=== PATIENT | female | born 1945 | race Caucasian/White ===

== ENCOUNTER 2020-10-20 16:03 | Inpatient (IN) ==
[2020-10-20] MEDS ORDERED: Melatonin 3 MG TABLET PO PRN (20:04)
[2020-10-20] MEDS ORDERED: Ondansetron 4 MG/2 ML VIAL IVP PRN (20:04)
[2020-10-20] MEDS ORDERED: Naloxone 0.4 MG/ML INJ IVP PRN (20:04)
[2020-10-21] MEDS ORDERED: D5% in Water 1,000 ML IVC PRN (00:15)
[2020-10-21] MEDS ORDERED: *HR* Dextrose 50 % in Water (Vial) 50 ML VIAL IVP PRN (00:15)
[2020-10-21] MEDS ORDERED: Dextrose Gel 15 GM/37.5 ML TUBE PO PRN ×2 (00:15)
[2020-10-21] MEDS: DilTIAZem 50 MG in 0.9 % Sodium Chloride 40 ML IVC SCH ×4 (00:16→21:05)
[2020-10-21] MEDS ORDERED: Levalbuterol Neb 0.63 MG/3 ML IH PRN (00:16)
[2020-10-21] MEDS ORDERED: Perflutren Lipid Microsphere 1.3 ML in 0.9 % Sodium Chloride 8.7 ML IVP PRN (00:55)
[2020-10-21 03:23] LABS: Basophils # 0.1 K/mcL (0.0-0.2); Basophils % 0.5 %; Eosinophils # 0.3 K/mcL (0.0-0.6); Eosinophils % 2.7 %; Hematocrit 35.6 % (35.3-44.9); Hemoglobin 10.8 g/dL (11.5-15.4); Immature Granulocytes % 0.5 % (0-4); Lymphocytes # 1.9 K/mcL (0.6-4.6); Lymphocytes % 16.7 %; Mean Corpuscular HGB Conc 30.3 g/dL (31.6-35.5); Mean Corpuscular Volume 95.4 fL (83.0-100.0); Mean Platelet Volume 9.6 fL (9.4-12.4); Monocytes # 0.9 K/mcL (0.0-1.3); Monocytes % 7.5 %; Neutrophils # 8.3 K/mcL (1.6-8.9); Platelet Count 450 K/mcL (140-400); Red Blood Count 3.73 M/mcL (3.82-4.97); Red Cell Distribution Width 13.2 % (11.5-14.5); Segmented Neutrophils % 72.1 %; White Blood Count 11.5 K/mcL (4.3-11.1)
[2020-10-21 03:39] LABS: Alanine Aminotransferase 12 Units/L (7-52); Albumin 3.8 g/dL (3.5-5.7); Albumin/Globulin Ratio 1.7 (1.1-2.2); Alkaline Phosphatase 49 Units/L (34-104); Aspartate Amino Transferase 14 Units/L (13-39); BUN/Creatinine Ratio 28 (6-26); Bilirubin,Total 0.4 mg/dL (0.3-1.0); Blood Urea Nitrogen 13 mg/dL (8-23); Calcium 9.4 mg/dL (8.6-10.3); Carbon Dioxide 39 mEq/L (23-29); Chloride 96 mEq/L (98-107); Globulin 2.3 g/dL (2.4-3.5); Glucose 126 mg/dL (70-105); Magnesium 1.6 mg/dL (1.6-2.6); Osmolality,Calculated 294 (280-300); Phosphorous 3.5 mg/dL (2.7-4.5); Potassium 4.2 mEq/L (3.5-5.1); Sodium 141 mEq/L (136-145); Total Protein 6.1 g/dL (6.4-8.9); eGFR For African Americans > 60 (> 60); eGFR For Non-African Americans > 60 (> 60)
[2020-10-21] MEDS: Insulin LISPRO 300 UNITS/3 ML VIAL SUBQ SCH ×4 (05:33→21:03)
[2020-10-21] MEDS: Acetaminophen 325 MG TABLET PO PRN (08:57)
[2020-10-21] MEDS: Aspirin 81 MG TAB.CHEW PO SCH (08:58)
[2020-10-21] MEDS ORDERED: Azithromycin 250 MG TABLET PO ONE (14:46)
[2020-10-21] MEDS ORDERED: *HR* Heparin 5,000 UNIT/ML VIAL IVP PRN ×2 (14:49)
[2020-10-21] MEDS ORDERED: *HR* Heparin 5,000 UNIT/ML VIAL IVP ONE (14:49)
[2020-10-21 16:15] LABS: Hematocrit 35.8 % (35.3-44.9); Hemoglobin 10.4 g/dL (11.5-15.4); Mean Corpuscular HGB Conc 29.1 g/dL (31.6-35.5); Mean Corpuscular Hemoglobin 27.6 pg (28.0-33.3); Mean Platelet Volume 9.6 fL (9.4-12.4); Platelet Count 435 K/mcL (140-400); Red Blood Count 3.77 M/mcL (3.82-4.97); Red Cell Distribution Width 13.2 % (11.5-14.5); White Blood Count 10.6 K/mcL (4.3-11.1)
[2020-10-21] MEDS: cefTRIAXone 1,000 MG in 0.9 % Sodium Chloride Mini Bag 100 ML IVPB SCH (16:15)
[2020-10-21 16:27] LABS: Heparin anti-factor XA UFH 0.15 IU/mL (0.30-0.70)
[2020-10-21 16:28] LABS: INR 1.2; Prothrombin Time 14.3 Seconds (9.4-12.1)
[2020-10-21 17:47] LABS: Bilirubin,Urine Negative (Negative); Blood,Urine Negative (Negative); Clarity,Urine Clear (Clear); Color,Urine Light-Yellow (Yellow); Glucose,Urine (UA) >=1000 mg/dL (Normal); Ketones,Urine 40 mg/dL (Negative); Leukocyte Esterase,Urine Negative (Negative); Mucus,Urine Few per lpf (None-Few); Nitrite,Urine Negative (Negative); Protein,Urine Negative (Neg-Trace); Specific Gravity,Urine 1.029 (1.010-1.025); Squamous Epithelial Cell,Urine Few per hpf (None-Few); Urobilinogen,Urine Normal (Normal); WBC,Urine 0-3 per hpf (0-3)
[2020-10-21] MEDS: Magnesium Oxide 400 MG TABLET PO SCH (18:39)
[2020-10-21] MEDS: Metoprolol XL (24 HR) Succ 50 MG TAB.ER.24H PO SCH (18:40)
[2020-10-21] MEDS: Heparin 25,000UNIT/250ML 1/2NS 25,000 UNIT/250 ML IV.SOLN IVC SCH (18:40)
[2020-10-22] MEDS: DilTIAZem 50 MG in 0.9 % Sodium Chloride 40 ML IVC SCH ×2 (00:16→04:09)
[2020-10-22 00:36] LABS: Basophils # 0.1 K/mcL (0.0-0.2); Basophils % 0.6 %; Eosinophils # 0.3 K/mcL (0.0-0.6); Eosinophils % 2.7 %; Hematocrit 34.3 % (35.3-44.9); Immature Granulocytes % 0.6 % (0-4); Lymphocytes # 1.8 K/mcL (0.6-4.6); Lymphocytes % 16.9 %; Mean Corpuscular HGB Conc 29.2 g/dL (31.6-35.5); Mean Corpuscular Hemoglobin 27.5 pg (28.0-33.3); Mean Corpuscular Volume 94.5 fL (83.0-100.0); Mean Platelet Volume 9.5 fL (9.4-12.4); Monocytes # 0.9 K/mcL (0.0-1.3); Monocytes % 8.1 %; Neutrophils # 7.7 K/mcL (1.6-8.9); Platelet Count 415 K/mcL (140-400); Red Blood Count 3.63 M/mcL (3.82-4.97); Red Cell Distribution Width 13.3 % (11.5-14.5); Segmented Neutrophils % 71.1 %; White Blood Count 10.9 K/mcL (4.3-11.1)
[2020-10-22 00:55] LABS: BUN/Creatinine Ratio 25 (6-26); Blood Urea Nitrogen 13 mg/dL (8-23); Calcium 9.4 mg/dL (8.6-10.3); Carbon Dioxide 38 mEq/L (23-29); Chloride 93 mEq/L (98-107); Glucose 165 mg/dL (70-105); Magnesium 1.7 mg/dL (1.6-2.6); Osmolality,Calculated 288 (280-300); Potassium 3.8 mEq/L (3.5-5.1); Sodium 137 mEq/L (136-145); eGFR For African Americans > 60 (> 60); eGFR For Non-African Americans > 60 (> 60)
[2020-10-22] MEDS ORDERED: DilTIAZem 50 MG in 0.9 % Sodium Chloride 40 ML IVC SCH (07:58)
[2020-10-22] MEDS: Aspirin 81 MG TAB.CHEW PO SCH (08:41)
[2020-10-22] MEDS: DilTIAZem CD (24hr) 300 MG CAP.ER.24H PO SCH (08:41)
[2020-10-22] MEDS: Magnesium Oxide 400 MG TABLET PO SCH (08:41)
[2020-10-22] MEDS: Insulin LISPRO 300 UNITS/3 ML VIAL SUBQ SCH ×4 (08:41→20:44)
[2020-10-22] MEDS: Metoprolol XL (24 HR) Succ 50 MG TAB.ER.24H PO SCH (08:41)
[2020-10-22] MEDS: Heparin 25,000UNIT/250ML 1/2NS 25,000 UNIT/250 ML IV.SOLN IVC SCH (12:37)
[2020-10-22] MEDS: Azithromycin 250 MG TABLET PO SCH (16:27)
[2020-10-22] MEDS: cefTRIAXone 1,000 MG in 0.9 % Sodium Chloride Mini Bag 100 ML IVPB SCH (16:27)
[2020-10-23 02:20] LABS: Basophils # 0.1 K/mcL (0.0-0.2); Eosinophils # 0.3 K/mcL (0.0-0.6); Eosinophils % 3.1 %; Hematocrit 36.7 % (35.3-44.9); Hemoglobin 10.5 g/dL (11.5-15.4); Immature Granulocytes % 0.9 % (0-4); Lymphocytes # 1.5 K/mcL (0.6-4.6); Lymphocytes % 18.3 %; Mean Corpuscular HGB Conc 28.6 g/dL (31.6-35.5); Mean Corpuscular Hemoglobin 28.7 pg (28.0-33.3); Mean Corpuscular Volume 100.3 fL (83.0-100.0); Mean Platelet Volume 9.8 fL (9.4-12.4); Platelet Count 332 K/mcL (140-400); Red Blood Count 3.66 M/mcL (3.82-4.97); Red Cell Distribution Width 13.6 % (11.5-14.5); Segmented Neutrophils % 64.7 %; White Blood Count 8.1 K/mcL (4.3-11.1)
[2020-10-23 02:24] LABS: Neutrophils # 5.2 K/mcL (1.6-8.9)
[2020-10-23 02:51] LABS: BUN/Creatinine Ratio 22 (6-26); Blood Urea Nitrogen 11 mg/dL (8-23); Calcium 8.4 mg/dL (8.6-10.3); Carbon Dioxide 28 mEq/L (23-29); Chloride 98 mEq/L (98-107); Glucose 113 mg/dL (70-105); Magnesium 1.9 mg/dL (1.6-2.6); Osmolality,Calculated 286 (280-300); Potassium 4.3 mEq/L (3.5-5.1); Sodium 138 mEq/L (136-145); eGFR For African Americans > 60 (> 60); eGFR For Non-African Americans > 60 (> 60)
[2020-10-23] MEDS: Heparin 25,000UNIT/250ML 1/2NS 25,000 UNIT/250 ML IV.SOLN IVC SCH (05:05)
[2020-10-23] MEDS: Acetaminophen 325 MG TABLET PO PRN (05:56)
[2020-10-23] MEDS: Insulin LISPRO 300 UNITS/3 ML VIAL SUBQ SCH ×4 (08:00→21:38)
[2020-10-23] MEDS: Aspirin 81 MG TAB.CHEW PO SCH (08:01)
[2020-10-23] MEDS: DilTIAZem CD (24hr) 300 MG CAP.ER.24H PO SCH (08:01)
[2020-10-23] MEDS: Magnesium Oxide 400 MG TABLET PO SCH (08:01)
[2020-10-23] MEDS: Metoprolol XL (24 HR) Succ 50 MG TAB.ER.24H PO SCH ×2 (10:19→20:40)
[2020-10-23] MEDS: cefTRIAXone 1,000 MG in 0.9 % Sodium Chloride Mini Bag 100 ML IVPB SCH (14:46)
[2020-10-23] MEDS: Azithromycin 250 MG TABLET PO SCH (14:46)
[2020-10-23] MEDS ORDERED: *HR* Heparin 5,000 UNIT/ML VIAL IVP PRN ×2 (17:18→17:19)
[2020-10-23] MEDS ORDERED: Heparin 25,000UNIT/250ML 1/2NS 25,000 UNIT/250 ML IV.SOLN IVC SCH (17:19)
[2020-10-23] MEDS: Apixaban 5 MG TABLET PO SCH (20:40)
[2020-10-24 01:16] LABS: Basophils # 0.1 K/mcL (0.0-0.2); Basophils % 0.9 %; Eosinophils # 0.3 K/mcL (0.0-0.6); Eosinophils % 3.3 %; Hemoglobin 9.8 g/dL (11.5-15.4); Lymphocytes # 1.4 K/mcL (0.6-4.6); Lymphocytes % 17.7 %; Mean Corpuscular HGB Conc 29.7 g/dL (31.6-35.5); Mean Corpuscular Hemoglobin 28.4 pg (28.0-33.3); Mean Corpuscular Volume 95.7 fL (83.0-100.0); Mean Platelet Volume 9.7 fL (9.4-12.4); Monocytes % 12.5 %; Neutrophils # 5.2 K/mcL (1.6-8.9); Platelet Count 421 K/mcL (140-400); Red Blood Count 3.45 M/mcL (3.82-4.97); Red Cell Distribution Width 13.8 % (11.5-14.5); Segmented Neutrophils % 64.6 %; White Blood Count 8.1 K/mcL (4.3-11.1)
[2020-10-24 01:39] LABS: BUN/Creatinine Ratio 24 (6-26); Blood Urea Nitrogen 11 mg/dL (8-23); Carbon Dioxide 36 mEq/L (23-29); Chloride 97 mEq/L (98-107); Glucose 139 mg/dL (70-105); Magnesium 1.8 mg/dL (1.6-2.6); Osmolality,Calculated 292 (280-300); Sodium 140 mEq/L (136-145); eGFR For African Americans > 60 (> 60); eGFR For Non-African Americans > 60 (> 60)
[2020-10-24] MEDS: Acetaminophen 325 MG TABLET PO PRN (05:43)
[2020-10-24] MEDS: Apixaban 5 MG TABLET PO SCH ×2 (08:25→19:44)
[2020-10-24] MEDS: DilTIAZem CD (24hr) 180 MG CAP.ER.24H PO SCH (08:26)
[2020-10-24] MEDS: Insulin LISPRO 300 UNITS/3 ML VIAL SUBQ SCH ×4 (08:26→19:46)
[2020-10-24] MEDS: Aspirin 81 MG TAB.CHEW PO SCH (08:26)
[2020-10-24] MEDS: Metoprolol XL (24 HR) Succ 50 MG TAB.ER.24H PO SCH ×2 (08:26→19:44)
[2020-10-24] MEDS: Magnesium Oxide 400 MG TABLET PO SCH (08:26)
[2020-10-24] MEDS ORDERED: Furosemide 20 MG/2 ML VIAL IVP ONE (12:08)
[2020-10-24] MEDS ORDERED: MethylPREDNISolone 40 MG/ML VIAL IVP ONE (12:08)
[2020-10-24 14:31] LABS: Adenovirus Not Detected (Not Detect); Bordetella Pertussis Not Detected (Not Detect); Chlamydophila pneumoniae Not Detected (Not Detect); Coronavirus 229E Not Detected (Not Detect); Coronavirus HKU1 Not Detected (Not Detect); Coronavirus NL63 Not Detected (Not Detect); Coronavirus OC43 Not Detected (Not Detect); Human Metapneumovirus Not Detected (Not Detect); Human Rhinovirus/Enterovirus Not Detected (Not Detect); Influenza A Subtype 2009 H1 Not Detected (Not Detect); Influenza B Not Detected (Not Detect); Mycoplasma pneumoniae Not Detected (Not Detect); Parainfluenza Virus 1 Not Detected (Not Detect); Parainfluenza Virus 2 Not Detected (Not Detect); Parainfluenza Virus 3 Not Detected (Not Detect); Parainfluenza Virus 4 Not Detected (Not Detect); Respiratory Syncytial Virus Not Detected (Not Detect); SARS-CoV-2 Not Detected (Not Detect)
[2020-10-24] MEDS: Azithromycin 250 MG TABLET PO SCH (15:32)
[2020-10-24] MEDS: cefTRIAXone 1,000 MG in 0.9 % Sodium Chloride Mini Bag 100 ML IVPB SCH (15:33)
[2020-10-24] MEDS: Levalbuterol Neb 0.63 MG/3 ML IH SCH ×2 (15:57→21:37)
[2020-10-25] MEDS: Levalbuterol Neb 0.63 MG/3 ML IH SCH ×4 (03:32→22:29)
[2020-10-25 06:57] LABS: Basophils % 0.3 %; Hematocrit 32.6 % (35.3-44.9); Hemoglobin 9.6 g/dL (11.5-15.4); Immature Granulocytes % 1.1 % (0-4); Lymphocytes # 0.9 K/mcL (0.6-4.6); Lymphocytes % 9.9 %; Mean Corpuscular HGB Conc 29.4 g/dL (31.6-35.5); Mean Platelet Volume 10.4 fL (9.4-12.4); Monocytes # 0.6 K/mcL (0.0-1.3); Monocytes % 6.8 %; Neutrophils # 7.7 K/mcL (1.6-8.9); Platelet Count 398 K/mcL (140-400); Red Blood Count 3.43 M/mcL (3.82-4.97); Red Cell Distribution Width 13.9 % (11.5-14.5); Segmented Neutrophils % 81.9 %; White Blood Count 9.4 K/mcL (4.3-11.1)
[2020-10-25 07:07] LABS: BUN/Creatinine Ratio 39 (6-26); Blood Urea Nitrogen 16 mg/dL (8-23); Calcium 9.2 mg/dL (8.6-10.3); Carbon Dioxide 36 mEq/L (23-29); Chloride 98 mEq/L (98-107); Glucose 194 mg/dL (70-105); Magnesium 1.8 mg/dL (1.6-2.6); Osmolality,Calculated 298 (280-300); Potassium 4.7 mEq/L (3.5-5.1); Sodium 141 mEq/L (136-145); eGFR For African Americans > 60 (> 60); eGFR For Non-African Americans > 60 (> 60)
[2020-10-25] MEDS ORDERED: Ringers Solution, Lactated 1,000 ML IVC SCH (07:30)
[2020-10-25] MEDS: Apixaban 5 MG TABLET PO SCH ×2 (08:24→21:04)
[2020-10-25] MEDS: Magnesium Oxide 400 MG TABLET PO SCH (08:24)
[2020-10-25] MEDS: Aspirin 81 MG TAB.CHEW PO SCH (08:24)
[2020-10-25] MEDS: DilTIAZem CD (24hr) 180 MG CAP.ER.24H PO SCH (08:24)
[2020-10-25] MEDS: Insulin LISPRO 300 UNITS/3 ML VIAL SUBQ SCH ×4 (08:24→21:13)
[2020-10-25] MEDS: Metoprolol XL (24 HR) Succ 50 MG TAB.ER.24H PO SCH ×2 (08:29→21:04)
[2020-10-25] MEDS ORDERED: Furosemide 40 MG/4 ML VIAL IVP ONE (14:36)
[2020-10-25] MEDS ORDERED: MethylPREDNISolone 40 MG/ML VIAL IVP ONE (14:37)
[2020-10-25] MEDS: Azithromycin 250 MG TABLET PO SCH (14:55)
[2020-10-25] MEDS: cefTRIAXone 1,000 MG in 0.9 % Sodium Chloride Mini Bag 100 ML IVPB SCH (14:55)
[2020-10-25] MEDS ORDERED: Isovue-370 500 ML BOTTLE IVP ONE (16:12)
[2020-10-25] MEDS ORDERED: Ipratropium Neb 0.5 MG NEBULIZER IH PRN (17:17)
[2020-10-26] MEDS: Levalbuterol Neb 0.63 MG/3 ML IH SCH ×4 (03:58→21:48)
[2020-10-26 07:45] LABS: BUN/Creatinine Ratio 48 (6-26); Blood Urea Nitrogen 25 mg/dL (8-23); Calcium 9.1 mg/dL (8.6-10.3); Carbon Dioxide 34 mEq/L (23-29); Chloride 94 mEq/L (98-107); Glucose 253 mg/dL (70-105); Magnesium 1.8 mg/dL (1.6-2.6); Osmolality,Calculated 295 (280-300); Potassium 4.8 mEq/L (3.5-5.1); Sodium 136 mEq/L (136-145); eGFR For African Americans > 60 (> 60); eGFR For Non-African Americans > 60 (> 60)
[2020-10-26] MEDS: Magnesium Oxide 400 MG TABLET PO SCH (09:06)
[2020-10-26] MEDS: predniSONE 20 MG TABLET PO SCH (09:06)
[2020-10-26] MEDS: Aspirin 81 MG TAB.CHEW PO SCH (09:06)
[2020-10-26] MEDS: DilTIAZem CD (24hr) 180 MG CAP.ER.24H PO SCH (09:07)
[2020-10-26] MEDS: Apixaban 5 MG TABLET PO SCH ×2 (09:07→20:43)
[2020-10-26] MEDS: Insulin LISPRO 300 UNITS/3 ML VIAL SUBQ SCH ×4 (09:07→20:47)
[2020-10-26] MEDS: Metoprolol XL (24 HR) Succ 50 MG TAB.ER.24H PO SCH ×2 (09:07→20:43)
[2020-10-26 09:51] LABS: Basophils % 0.2 %; Hemoglobin 8.9 g/dL (11.5-15.4); Immature Granulocytes % 0.7 % (0-4); Lymphocytes % 9.3 %; Mean Corpuscular HGB Conc 29.7 g/dL (31.6-35.5); Mean Corpuscular Hemoglobin 28.2 pg (28.0-33.3); Mean Corpuscular Volume 94.9 fL (83.0-100.0); Mean Platelet Volume 10.4 fL (9.4-12.4); Monocytes # 0.7 K/mcL (0.0-1.3); Monocytes % 6.6 %; Neutrophils # 9.1 K/mcL (1.6-8.9); Platelet Count 436 K/mcL (140-400); Red Blood Count 3.16 M/mcL (3.82-4.97); Red Cell Distribution Width 14.3 % (11.5-14.5); Segmented Neutrophils % 83.2 %; White Blood Count 10.9 K/mcL (4.3-11.1)
[2020-10-26 13:14] LABS: % Iron Saturation 4 % (15-50); Iron 18 mcg/dL (50-170); Transferrin 304 mg/dL (203-362)
[2020-10-26] MEDS ORDERED: Iron Sucrose Complex 250 MG in 0.9 % Sodium Chloride 250 ML IVPB ONE (14:30)
[2020-10-26] MEDS: cefTRIAXone 1,000 MG in 0.9 % Sodium Chloride Mini Bag 100 ML IVPB SCH (16:53)
[2020-10-27 03:03] LABS: Hematocrit 29.8 % (35.3-44.9); Hemoglobin 9.1 g/dL (11.5-15.4); Mean Corpuscular HGB Conc 30.5 g/dL (31.6-35.5); Mean Corpuscular Hemoglobin 28.9 pg (28.0-33.3); Mean Corpuscular Volume 94.6 fL (83.0-100.0); Platelet Count 453 K/mcL (140-400); Red Blood Count 3.15 M/mcL (3.82-4.97); Red Cell Distribution Width 14.7 % (11.5-14.5); White Blood Count 12.4 K/mcL (4.3-11.1)
[2020-10-27 03:27] LABS: BUN/Creatinine Ratio 43 (6-26); Blood Urea Nitrogen 26 mg/dL (8-23); Calcium 9.1 mg/dL (8.6-10.3); Carbon Dioxide 34 mEq/L (23-29); Chloride 95 mEq/L (98-107); Glucose 273 mg/dL (70-105); Osmolality,Calculated 296 (280-300); Potassium 4.4 mEq/L (3.5-5.1); Sodium 136 mEq/L (136-145); eGFR For African Americans > 60 (> 60); eGFR For Non-African Americans > 60 (> 60)
[2020-10-27] MEDS: Levalbuterol Neb 0.63 MG/3 ML IH SCH ×4 (04:01→22:42)
[2020-10-27] MEDS: Aspirin 81 MG TAB.CHEW PO SCH (08:33)
[2020-10-27] MEDS: DilTIAZem CD (24hr) 180 MG CAP.ER.24H PO SCH (08:33)
[2020-10-27] MEDS: Magnesium Oxide 400 MG TABLET PO SCH (08:33)
[2020-10-27] MEDS: Metoprolol XL (24 HR) Succ 50 MG TAB.ER.24H PO SCH ×2 (08:33→20:50)
[2020-10-27] MEDS: Apixaban 5 MG TABLET PO SCH ×2 (08:33→20:50)
[2020-10-27] MEDS: predniSONE 20 MG TABLET PO SCH (08:33)
[2020-10-27] MEDS: Insulin LISPRO 300 UNITS/3 ML VIAL SUBQ SCH ×4 (08:35→20:51)
[2020-10-27] MEDS ORDERED: cefTRIAXone 1,000 MG in Water for inj. (sterile) 10 ML IVP ONE (11:00)
[2020-10-27] MEDS: Furosemide 20 MG/2 ML VIAL IVP SCH ×2 (11:42→16:34)
[2020-10-28] MEDS: Levalbuterol Neb 0.63 MG/3 ML IH SCH ×3 (03:34→15:30)
[2020-10-28 04:51] LABS: Hematocrit 31.6 % (35.3-44.9); Hemoglobin 9.4 g/dL (11.5-15.4); Mean Corpuscular HGB Conc 29.7 g/dL (31.6-35.5); Mean Corpuscular Hemoglobin 28.5 pg (28.0-33.3); Mean Corpuscular Volume 95.8 fL (83.0-100.0); Mean Platelet Volume 9.9 fL (9.4-12.4); Platelet Count 427 K/mcL (140-400); Red Cell Distribution Width 15.1 % (11.5-14.5)
[2020-10-28 05:13] LABS: BUN/Creatinine Ratio 41 (6-26); Blood Urea Nitrogen 19 mg/dL (8-23); Calcium 9.3 mg/dL (8.6-10.3); Carbon Dioxide 35 mEq/L (23-29); Chloride 95 mEq/L (98-107); Glucose 189 mg/dL (70-105); Osmolality,Calculated 289 (280-300); Sodium 136 mEq/L (136-145); eGFR For African Americans > 60 (> 60); eGFR For Non-African Americans > 60 (> 60)
[2020-10-28 08:06] VITALS: BP 110/73; PULSE 90; TEMP 97.8
[2020-10-28] MEDS ORDERED: Furosemide 20 MG TABLET PO SCH (09:00)
[2020-10-28] MEDS: Aspirin 81 MG TAB.CHEW PO SCH (09:02)
[2020-10-28] MEDS: Apixaban 5 MG TABLET PO SCH (09:02)
[2020-10-28] MEDS: predniSONE 20 MG TABLET PO SCH (09:02)
[2020-10-28] MEDS: DilTIAZem CD (24hr) 180 MG CAP.ER.24H PO SCH (09:02)
[2020-10-28] MEDS: Metoprolol XL (24 HR) Succ 50 MG TAB.ER.24H PO SCH (09:02)
[2020-10-28] MEDS: Magnesium Oxide 400 MG TABLET PO SCH (09:02)
[2020-10-28] MEDS: Insulin LISPRO 300 UNITS/3 ML VIAL SUBQ SCH ×2 (09:03→12:13)
[2020-10-28 10:11] VITALS: O2SAT 94
== END 2020-10-28 15:38 | disposition home health service (06) | DRG 193 ==
LOC: CDU → SUATTDRO 10-21 17:10 → 2ANU 10-22 18:16
PROVIDERS: ADMIT Internal Medicine; ATTEND Family Medicine

== ENCOUNTER 2021-02-06 04:47 | Inpatient (IN) ==
[2021-02-06] MEDS ORDERED: Azithromycin 500 MG in 0.9 % Sodium Chloride 250 ML IVPB ONE (10:22)
[2021-02-06] MEDS ORDERED: Naloxone 0.4 MG/ML INJ IVP PRN ×2 (10:22→18:54)
[2021-02-06] MEDS ORDERED: Acetaminophen 325 MG TABLET PO PRN (10:22)
[2021-02-06] MEDS ORDERED: Albuterol 2.5 MG/3 ML NEBULIZER IH PRN ×2 (10:22→18:54)
[2021-02-06] MEDS ORDERED: cefTRIAXone 2,000 MG in Water for inj. (sterile) 20 ML IVP SCH (11:00)
[2021-02-06] MEDS ORDERED: Ipratropium/Albuterol Neb 3 ML ONE (11:17)
[2021-02-06] MEDS: Ipratropium/Albuterol Neb 3 ML IH SCH ×4 (11:20→23:38)
[2021-02-06 11:25] LABS: Hemoglobin 8.1 g/dL (11.5-15.4); Red Cell Distribution Width 20.7 % (11.5-14.5)
[2021-02-06 11:26] LABS: Hematocrit 28.2 % (35.3-44.9); Mean Corpuscular HGB Conc 28.7 g/dL (31.6-35.5); Mean Corpuscular Hemoglobin 28.2 pg (28.0-33.3); Mean Corpuscular Volume 98.3 fL (83.0-100.0); Mean Platelet Volume 9.5 fL (9.4-12.4); Platelet Count 531 K/mcL (140-400); Red Blood Count 2.87 M/mcL (3.82-4.97); White Blood Count 7.9 K/mcL (4.3-11.1)
[2021-02-06 11:32] LABS: INR 1.8; Prothrombin Time 20.2 Seconds (9.4-12.1)
[2021-02-06 11:34] LABS: Activated Partial Thrombo Time 41.7 Seconds (26.0-36.0)
[2021-02-06 12:04] LABS: Albumin 3.5 g/dL (3.5-5.7); Albumin/Globulin Ratio 1.5 (1.1-2.2); Bilirubin,Indirect 0.2 mg/dL (0.0-1.0); Bilirubin,Total 0.2 mg/dL (0.3-1.0); Calcium 7.6 mg/dL (8.6-10.3); Globulin 2.3 g/dL (2.4-3.5); Magnesium 0.9 mg/dL (1.6-2.6); Phosphorous 4.2 mg/dL (2.7-4.5); Potassium 4.5 mEq/L (3.5-5.1); Total Protein 5.8 g/dL (6.4-8.9); Troponin I < 0.03 ng/mL (< 0.04)
[2021-02-06 12:09] LABS: Anisocytosis 2+ (Not Present); Basophils # 0.5 K/mcL (0.0-0.2); Hypochromasia Present (Not Present); Lymphocytes # 1.7 K/mcL (0.6-4.6); Neutrophils # 4.7 K/mcL (1.6-8.9); Platelet Estimate Increased (Normal); Polychromasia 1+ (Not Present); Reactive Lymphocytes Present (Not Present)
[2021-02-06] MEDS ORDERED: *HR* Heparin 5,000 UNIT/ML VIAL SQ SCH (16:00)
[2021-02-06] MEDS ORDERED: MethylPREDNISolone 40 MG/ML VIAL IVP SCH (18:00)
[2021-02-06] MEDS: Budesonide/Formoterol 160/4.5 1 PUFF INH IH SCH (19:51)
[2021-02-06] MEDS: Apixaban 5 MG TABLET PO SCH (20:20)
[2021-02-06] MEDS: Metoprolol XL (24 HR) Succ 25 MG TAB.ER.24H PO SCH (20:20)
[2021-02-06 22:58] LABS: ABG Base Excess 4 mEq/L (-2 to 3); ABG HCO3 32 mEq/L (21-27); ABG Oxygen Saturation 89 % (95-98); ABG PCO2 61 mmHg (35-45); ABG PH 7.33 pH Units (7.32-7.45); ABG PO2 62 mmHg (85-104); ABG TCO2 34 mEq/L (20-26)
[2021-02-06 23:34] LABS: Bilirubin,Urine Negative (Negative); Blood,Urine Negative (Negative); Clarity,Urine Turbid (Clear); Color,Urine Yellow (Yellow); Glucose,Urine (UA) >=1000 mg/dL (Normal); Granular Casts,Urine Few per lpf (None Seen); Hyaline Casts,Urine Many per lpf (None Seen); Ketones,Urine Trace mg/dL (Negative); Leukocyte Esterase,Urine Negative (Negative); Mucus,Urine Few per lpf (None-Few); Nitrite,Urine Negative (Negative); PH,Urine 5.5 pH Units (5.0-8.0); Protein,Urine 70 mg/dL (Neg-Trace); Squamous Epithelial Cell,Urine Few per hpf (None-Few); Urobilinogen,Urine Normal (Normal); WBC,Urine 15-30 per hpf (0-3)
[2021-02-07] MEDS: Ipratropium/Albuterol Neb 3 ML IH SCH ×5 (04:11→20:37)
[2021-02-07] MEDS: MethylPREDNISolone 40 MG/ML VIAL IVP SCH ×2 (05:36→16:25)
[2021-02-07 05:46] LABS: Basophils % 0.2 %; Hematocrit 28.3 % (35.3-44.9); Hemoglobin 8.2 g/dL (11.5-15.4); Immature Granulocytes % 0.6 % (0-4); Lymphocytes # 0.7 K/mcL (0.6-4.6); Lymphocytes % 14.3 %; Mean Corpuscular Hemoglobin 28.4 pg (28.0-33.3); Mean Corpuscular Volume 97.9 fL (83.0-100.0); Mean Platelet Volume 9.7 fL (9.4-12.4); Monocytes # 0.1 K/mcL (0.0-1.3); Monocytes % 1.9 %; Platelet Count 603 K/mcL (140-400); Red Blood Count 2.89 M/mcL (3.82-4.97); Red Cell Distribution Width 20.4 % (11.5-14.5); White Blood Count 4.8 K/mcL (4.3-11.1)
[2021-02-07 06:01] LABS: Alanine Aminotransferase 6 Units/L (7-52); Albumin 3.4 g/dL (3.5-5.7); Albumin/Globulin Ratio 1.5 (1.1-2.2); Alkaline Phosphatase 47 Units/L (34-104); Aspartate Amino Transferase 15 Units/L (13-39); BUN/Creatinine Ratio 17 (6-26); Bilirubin,Direct 0.1 mg/dL (0.0-0.2); Bilirubin,Indirect 0.1 mg/dL (0.0-1.0); Bilirubin,Total 0.2 mg/dL (0.3-1.0); Blood Urea Nitrogen 16 mg/dL (8-23); Calcium 7.9 mg/dL (8.6-10.3); Carbon Dioxide 33 mEq/L (23-29); Chloride 98 mEq/L (98-107); Globulin 2.2 g/dL (2.4-3.5); Glucose 132 mg/dL (70-105); Osmolality,Calculated 291 (280-300); Phosphorous 4.9 mg/dL (2.7-4.5); Sodium 139 mEq/L (136-145); Total Protein 5.6 g/dL (6.4-8.9); eGFR For African Americans > 60 (> 60); eGFR For Non-African Americans 58 (> 60)
[2021-02-07] MEDS ORDERED: Albumin 25% 25gram/100mL 25 GM/100 ML IV.SOLN IVPB ONE (06:44)
[2021-02-07] MEDS: Doxycycline 100 MG CAPSULE PO SCH ×3 (07:31→20:01)
[2021-02-07] MEDS: Apixaban 5 MG TABLET PO SCH ×2 (07:31→20:01)
[2021-02-07 08:47] LABS: Triiodothyronine (T3) Total 60 ng/dL (87-178)
[2021-02-07] MEDS: *HR* Amiodarone 200 MG TABLET PO SCH (08:53)
[2021-02-07 09:54] LABS: Adenovirus Not Detected (Not Detect); Bordetella Pertussis Not Detected (Not Detect); Chlamydophila pneumoniae Not Detected (Not Detect); Coronavirus 229E Not Detected (Not Detect); Coronavirus HKU1 Not Detected (Not Detect); Coronavirus NL63 Not Detected (Not Detect); Coronavirus OC43 Not Detected (Not Detect); Human Metapneumovirus Not Detected (Not Detect); Human Rhinovirus/Enterovirus Not Detected (Not Detect); Influenza A Subtype 2009 H1 Not Detected (Not Detect); Influenza B Not Detected (Not Detect); Mycoplasma pneumoniae Not Detected (Not Detect); Parainfluenza Virus 1 Not Detected (Not Detect); Parainfluenza Virus 2 Not Detected (Not Detect); Parainfluenza Virus 3 Not Detected (Not Detect); Parainfluenza Virus 4 Not Detected (Not Detect); Respiratory Syncytial Virus Not Detected (Not Detect); SARS-CoV-2 Not Detected (Not Detect)
[2021-02-07] MEDS ORDERED: cefTRIAXone 2,000 MG in Water for inj. (sterile) 20 ML IVP SCH (11:00)
[2021-02-07] MEDS: Budesonide/Formoterol 160/4.5 1 PUFF INH IH SCH ×2 (11:12→20:38)
[2021-02-07] MEDS: Acetaminophen 325 MG TABLET PO PRN ×2 (11:34→22:41)
[2021-02-07] MEDS ORDERED: *HR* Dextrose 50 % in Water (Syg) 50 ML SYRINGE IVP PRN (12:31)
[2021-02-07] MEDS ORDERED: Dextrose Gel 15 GM/37.5 ML TUBE PO PRN ×2 (12:31)
[2021-02-07] MEDS ORDERED: D5% in Water 1,000 ML IVC PRN (12:31)
[2021-02-07] MEDS: Metoprolol XL (24 HR) Succ 25 MG TAB.ER.24H PO SCH ×2 (12:36→20:00)
[2021-02-07] MEDS: Insulin LISPRO 300 UNITS/3 ML VIAL SUBQ SCH ×2 (16:26→20:04)
[2021-02-07] MEDS ORDERED: *HR* Metoprolol 5 MG/5 ML VIAL IVP PRN (20:38)
[2021-02-08] MEDS: Ipratropium/Albuterol Neb 3 ML IH SCH ×6 (00:02→20:36)
[2021-02-08] MEDS: MethylPREDNISolone 40 MG/ML VIAL IVP SCH (05:54)
[2021-02-08 08:12] LABS: Hemoglobin 7.7 g/dL (11.5-15.4)
[2021-02-08 08:13] LABS: Hematocrit 26.4 % (35.3-44.9); Immature Granulocytes % 0.5 % (0-4); Lymphocytes % 13.6 %; Mean Corpuscular HGB Conc 29.2 g/dL (31.6-35.5); Mean Corpuscular Hemoglobin 27.8 pg (28.0-33.3); Mean Corpuscular Volume 95.3 fL (83.0-100.0); Mean Platelet Volume 9.6 fL (9.4-12.4); Monocytes # 0.5 K/mcL (0.0-1.3); Monocytes % 6.1 %; Neutrophils # 5.9 K/mcL (1.6-8.9); Platelet Count 643 K/mcL (140-400); Red Blood Count 2.77 M/mcL (3.82-4.97); Red Cell Distribution Width 20.4 % (11.5-14.5); Segmented Neutrophils % 79.8 %; White Blood Count 7.4 K/mcL (4.3-11.1)
[2021-02-08 08:25] LABS: Anisocytosis 1+ (Not Present); Hypochromasia Present (Not Present)
[2021-02-08] MEDS: Metoprolol XL (24 HR) Succ 25 MG TAB.ER.24H PO SCH (08:43)
[2021-02-08] MEDS: Apixaban 5 MG TABLET PO SCH ×2 (08:43→19:51)
[2021-02-08] MEDS: Doxycycline 100 MG CAPSULE PO SCH ×2 (08:44→19:51)
[2021-02-08] MEDS: *HR* Amiodarone 200 MG TABLET PO SCH (08:44)
[2021-02-08] MEDS: Insulin LISPRO 300 UNITS/3 ML VIAL SUBQ SCH ×4 (08:47→21:30)
[2021-02-08 09:12] LABS: Alanine Aminotransferase 7 Units/L (7-52); Albumin/Globulin Ratio 1.7 (1.1-2.2); Alkaline Phosphatase 53 Units/L (34-104); Aspartate Amino Transferase 12 Units/L (13-39); BUN/Creatinine Ratio 27 (6-26); Bilirubin,Indirect 0.2 mg/dL (0.0-1.0); Bilirubin,Total 0.2 mg/dL (0.3-1.0); Blood Urea Nitrogen 22 mg/dL (8-23); Calcium 8.8 mg/dL (8.6-10.3); Carbon Dioxide 34 mEq/L (23-29); Chloride 95 mEq/L (98-107); Globulin 2.3 g/dL (2.4-3.5); Glucose 173 mg/dL (70-105); Magnesium 1.8 mg/dL (1.6-2.6); Osmolality,Calculated 283 (280-300); Phosphorous 3.3 mg/dL (2.7-4.5); Potassium 4.9 mEq/L (3.5-5.1); Sodium 133 mEq/L (136-145); Total Protein 6.3 g/dL (6.4-8.9); eGFR For African Americans > 60 (> 60); eGFR For Non-African Americans > 60 (> 60)
[2021-02-08] MEDS: Budesonide/Formoterol 160/4.5 1 PUFF INH IH SCH ×2 (11:42→20:36)
[2021-02-08] MEDS: predniSONE 20 MG TABLET PO SCH (16:41)
[2021-02-08] MEDS: Acetaminophen 325 MG TABLET PO PRN (19:51)
[2021-02-09] MEDS: Ipratropium/Albuterol Neb 3 ML IH SCH ×7 (00:13→23:08)
[2021-02-09 01:12] LABS: Basophils % 0.2 %; Hematocrit 27.5 % (35.3-44.9)
[2021-02-09 01:13] LABS: Hemoglobin 7.8 g/dL (11.5-15.4); Immature Granulocytes % 1.1 % (0-4); Lymphocytes # 0.6 K/mcL (0.6-4.6); Lymphocytes % 8.5 %; Mean Corpuscular HGB Conc 28.4 g/dL (31.6-35.5); Mean Corpuscular Hemoglobin 27.9 pg (28.0-33.3); Mean Corpuscular Volume 98.2 fL (83.0-100.0); Mean Platelet Volume 9.4 fL (9.4-12.4); Monocytes # 0.3 K/mcL (0.0-1.3); Monocytes % 3.9 %; Neutrophils # 5.6 K/mcL (1.6-8.9); Nucleated Red Blood Cells 0.3 /100 WBC (0); Platelet Count 606 K/mcL (140-400); Segmented Neutrophils % 86.3 %; White Blood Count 6.5 K/mcL (4.3-11.1)
[2021-02-09 01:30] LABS: Alanine Aminotransferase 7 Units/L (7-52); Albumin 3.6 g/dL (3.5-5.7); Albumin/Globulin Ratio 1.5 (1.1-2.2); Alkaline Phosphatase 47 Units/L (34-104); Aspartate Amino Transferase 13 Units/L (13-39); BUN/Creatinine Ratio 34 (6-26); Bilirubin,Direct 0.1 mg/dL (0.0-0.2); Bilirubin,Indirect 0.2 mg/dL (0.0-1.0); Bilirubin,Total 0.3 mg/dL (0.3-1.0); Blood Urea Nitrogen 27 mg/dL (8-23); Calcium 8.7 mg/dL (8.6-10.3); Carbon Dioxide 32 mEq/L (23-29); Chloride 98 mEq/L (98-107); Globulin 2.4 g/dL (2.4-3.5); Glucose 161 mg/dL (70-105); Magnesium 1.7 mg/dL (1.6-2.6); Osmolality,Calculated 293 (280-300); Phosphorous 3.6 mg/dL (2.7-4.5); Potassium 5.6 mEq/L (3.5-5.1); Sodium 137 mEq/L (136-145); eGFR For African Americans > 60 (> 60); eGFR For Non-African Americans > 60 (> 60)
[2021-02-09 01:46] LABS: Anisocytosis 1+ (Not Present); Hypochromasia Present (Not Present); Poikilocytosis 1+ (Not Present)
[2021-02-09] MEDS: Budesonide/Formoterol 160/4.5 1 PUFF INH IH SCH ×2 (07:27→20:21)
[2021-02-09] MEDS: Insulin LISPRO 300 UNITS/3 ML VIAL SUBQ SCH ×4 (08:42→20:29)
[2021-02-09] MEDS: Apixaban 5 MG TABLET PO SCH ×2 (08:44→20:31)
[2021-02-09] MEDS: *HR* Amiodarone 200 MG TABLET PO SCH (08:44)
[2021-02-09] MEDS: Doxycycline 100 MG CAPSULE PO SCH ×2 (08:44→20:31)
[2021-02-09] MEDS: predniSONE 20 MG TABLET PO SCH ×2 (08:45→17:12)
[2021-02-09] MEDS: Verapamil ER (24 HR) 120 MG TABLET.ER PO SCH (11:36)
[2021-02-09] MEDS: Acetaminophen 325 MG TABLET PO PRN ×2 (13:49→20:34)
[2021-02-09] MEDS ORDERED: *HR* Metoprolol 5 MG/5 ML VIAL IVP ONE (14:51)
[2021-02-10 03:03] LABS: Hematocrit 27.2 % (35.3-44.9); Hemoglobin 7.6 g/dL (11.5-15.4); Immature Granulocytes % 1.5 % (0-4); Lymphocytes # 0.6 K/mcL (0.6-4.6); Lymphocytes % 10.4 %; Mean Corpuscular HGB Conc 27.9 g/dL (31.6-35.5); Mean Corpuscular Hemoglobin 27.2 pg (28.0-33.3); Mean Corpuscular Volume 97.5 fL (83.0-100.0); Mean Platelet Volume 9.7 fL (9.4-12.4); Monocytes # 0.4 K/mcL (0.0-1.3); Monocytes % 6.2 %; Platelet Count 602 K/mcL (140-400); Red Blood Count 2.79 M/mcL (3.82-4.97); Segmented Neutrophils % 81.9 %; White Blood Count 6.1 K/mcL (4.3-11.1)
[2021-02-10 03:20] LABS: BUN/Creatinine Ratio 39 (6-26); Blood Urea Nitrogen 26 mg/dL (8-23); Calcium 9.1 mg/dL (8.6-10.3); Carbon Dioxide 35 mEq/L (23-29); Chloride 98 mEq/L (98-107); Glucose 192 mg/dL (70-105); Magnesium 1.6 mg/dL (1.6-2.6); Osmolality,Calculated 296 (280-300); Phosphorous 3.9 mg/dL (2.7-4.5); Potassium 5.4 mEq/L (3.5-5.1); Sodium 138 mEq/L (136-145); eGFR For African Americans > 60 (> 60); eGFR For Non-African Americans > 60 (> 60)
[2021-02-10 03:25] LABS: Anisocytosis 1+ (Not Present); Hypochromasia Present (Not Present); Platelet Estimate Increased (Normal)
[2021-02-10] MEDS: Ipratropium/Albuterol Neb 3 ML IH SCH (04:31)
[2021-02-10 07:19] VITALS: TEMP 97.7
[2021-02-10] MEDS: Insulin LISPRO 300 UNITS/3 ML VIAL SUBQ SCH ×2 (07:57→11:42)
[2021-02-10] MEDS: Verapamil ER (24 HR) 120 MG TABLET.ER PO SCH (07:59)
[2021-02-10] MEDS: Doxycycline 100 MG CAPSULE PO SCH (07:59)
[2021-02-10] MEDS: *HR* Amiodarone 200 MG TABLET PO SCH (07:59)
[2021-02-10] MEDS: predniSONE 20 MG TABLET PO SCH (07:59)
[2021-02-10] MEDS: Apixaban 5 MG TABLET PO SCH (08:00)
[2021-02-10] MEDS ORDERED: Levalbuterol Neb 0.63 MG/3 ML IH SCH (10:00)
[2021-02-10] MEDS: Budesonide/Formoterol 160/4.5 1 PUFF INH IH SCH (10:15)
[2021-02-10 11:48] VITALS: BP 123/81; PULSE 154; O2SAT 91
== END 2021-02-10 13:52 | disposition hospice, home (50) | DRG 871 ==
LOC: ICNU → SUATTDRO 10:22 → 2ANU 21:59
PROVIDERS: ADMIT Internal Medicine; ATTEND Internal Medicine